=== PATIENT | female | born 2000 | race American Indian/Alaskan Native ===

== ENCOUNTER 2022-07-02 02:31 | Emergency (ER) | payer SELFPAY ==
--- NOTE | 2022-07-02 05:38 | Emergency Department Report ---
ED General Adult HPI - General Chief complaint: Earache Stated complaint: LT EARACHE Time Seen by Provider: 07/02/22 05:27 Source: patient, EMS Mode of arrival: Stretcher Limitations: No Limitations - History of Present Illness Initial comments: C/o of 4-5 days of worsening ear pain associated with swelling and drainage -: Gradual Radiation: non-radiation Quality: stabbing, aching, dull Consistency: constant Improves with: none Worsens with: none Associated Symptoms: denies other symptoms. denies: fever/chills, loss of appetite, nausea/vomiting, rash, shortness of breath, syncope, weakness Treatments Prior to Arrival: none - Related Data Previous Rx's Medication Instructions Recorded Last Taken Type Ciprofloxacin HCl 500 mg PO BID #14 07/02/22 Unknown Rx Neomy/Polymyx B/Hc (Otic) Soln 4 drops OT TID #1 bottle 07/02/22 Unknown Rx [Cortisporin (Otic) Soln] Allergies Allergy/AdvReac Type Severity Reaction Status Date / Time No Known Allergies Allergy Unverified 07/02/22 03:10 ED Review of Systems ROS: Stated complaint: LT EARACHE Other details as noted in HPI Comment: All other systems reviewed and negative ED Past Medical Hx - Medications Home Medications: Home Medications Medication Instructions Recorded Confirmed Last Taken Type Ciprofloxacin HCl 500 mg PO BID #14 07/02/22 Unknown Rx Neomy/Polymyx B/Hc (Otic) Soln 4 drops OT TID #1 bottle 07/02/22 Unknown Rx [Cortisporin (Otic) Soln] ED Physical Exam - General Limitations: No Limitations General appearance: alert, in no apparent distress - Head Head exam: Present: atraumatic, normocephalic - Eye Eye exam: Present: normal appearance, PERRL, EOMI Pupils: Present: normal accommodation - ENT ENT exam: Present: mucous membranes moist - Expanded ENT Exam Expanded Ear exam: Present: other (no mastoid tenderness. no bleeding) TM/Canal exam: Erythema: Left TM, Canal Discharge: Left TM (tragal tenderness and canal edema. ), Canal Tenderness: Left TM Mouth exam: Present: tongue normal. Absent: drooling, tongue elevation Teeth exam: Present: normal inspection Throat exam: Positive: normal inspection - Neck Neck exam: Present: normal inspection. Absent: lymphadenopathy - Respiratory Respiratory exam: Present: normal lung sounds bilaterally. Absent: respiratory distress - Cardiovascular Cardiovascular Exam: Present: regular rate, normal rhythm. Absent: systolic murmur, diastolic murmur, rubs, gallop - GI/Abdominal GI/Abdominal exam: Present: soft, normal bowel sounds - Extremities Exam Extremities exam: Present: normal inspection - Back Exam Back exam: Present: normal inspection - Neurological Exam Neurological exam: Present: alert, oriented X3 - Psychiatric Psychiatric exam: Present: normal affect, normal mood - Skin Skin exam: Present: warm, dry, intact, normal color. Absent: rash ED Course Vital Signs 07/02/22 03:08 Temperature 97.5 F L Pulse Rate 96 H Respiratory 16 Rate Blood Pressure 120/72 [Right] O2 Sat by Pulse 99 Oximetry Critical care attestation.: If time is entered above; I have spent that time in minutes in the direct care of this critically ill patient, excluding procedure time. ED Disposition Clinical Impression: Acute otitis externa Disposition: HOME / SELF CARE / HOMELESS Is pt being admited?: No Does the pt Need Aspirin: No Condition: Stable Instructions: Otitis Externa Prescriptions: Ciprofloxacin HCl 500 mg PO BID #14 Neomy/Polymyx B/Hc (Otic) Soln [Cortisporin (Otic) Soln] 4 drops OT TID #1 bottle Referrals: [facility] [Provider Group] - 3-5 Days
[2022-07-02 05:51] VITALS: BP 127/79
== END 2022-07-02 06:48 | disposition home or self-care (01) ==
LOC: ED 02:31
DX: H60.92 Unspecified otitis externa, left ear (principal)
CPT/HCPCS: 99283